=== PATIENT | female | born 1950 | race Caucasian/White ===

== ENCOUNTER 2021-12-05 09:52 | Day surgery (SDC) | payer OTHER ==
[~2021-12-05] VITALS: Ht 157.5 cm; Wt 59.4 kg
[2021-12-05] MEDS ORDERED: fentaNYL citrate 0.05 MG/ML VIAL ONE (13:21)
[2021-12-05] MEDS ORDERED: MIDAZOLAM 5 MG/5 ML VIAL ONE (13:22)
[2021-12-05] MEDS ORDERED: LIDOCAINE 2% 100 MG/5 ML UJET TP ONE (13:22)
[2021-12-05] MEDS ORDERED: MIDAZOLAM 2 MG/2 ML VIAL IVP ONE (14:35)
[2021-12-05] MEDS ORDERED: fentaNYL citrate 0.05 MG/ML VIAL IVP ONE (14:35)
== END 2021-12-05 14:22 | disposition home or self-care (01) ==
LOC: MLB 09:52 → MMU 10:33 → MLB 14:22
PROVIDERS: ATTEND Internal Medicine Gastroenterology
DX: Z12.11 Encounter for screening for malignant neoplasm of colon (principal); K63.5 Polyp of colon; K59.00 Constipation, unspecified; K21.9 Gastro-esophageal reflux disease without esophagitis; I10 Essential (primary) hypertension; E11.9 Type 2 diabetes mellitus without complications; Z79.84 Long term (current) use of oral hypoglycemic drugs; Z79.899 Other long term (current) drug therapy; Z20.822 Contact with and (suspected) exposure to COVID-19
CPT/HCPCS: 43235; 45385; 87426; J2250; J3010